=== PATIENT | male | born 1955 | race Caucasian/White ===

== ENCOUNTER 2024-06-26 14:25 | Outpatient (CLI) | payer MEDICARE, MEDICAID, SELFPAY ==
--- NOTE | 2024-06-26 14:30 | CT_ITS ---
FINAL REPORT TECHNIQUE: Thin section axial CT images of the facial bones and sinuses were obtained without contrast. Coronal reformatted images were also obtained.This study was performed with techniques to keep radiation doses as low as reasonably achievable, (ALARA). Individualized dose reduction techniques using automated exposure control or adjustment of mA and/or kV according to the patient''''s size were employed. CLINICAL HISTORY: recurrent sinusitis COMPARISON: None FINDINGS: There is lobular mucoperiosteal thickening in both maxillary sinuses, more evident on the right than on the left. There is soft tissue bridging the right ostiomeatal unit. The left ostiomeatal unit is patent. There is curvilinear air lateral to the left maxilla which appears to be intravascular and is well seen on images 68-71. The nasal septum is in the midline. No fracture or acute bony abnormality is identified. IMPRESSION: Bilateral maxillary sinusitis, [id number]. Soft tissue bridging the right ostiomeatal unit. Incidental air lateral to the left maxilla. Correlate with any recent IV access. Reviewed, Interpreted and Dictated by Vik Abraham MD Transcribed by Mary Boyle Authenticated and [facility]
== END 2024-06-26 23:59 | disposition home or self-care (01) ==
LOC: RAD 14:27
PROVIDERS: PCP Student in an Organized Health Care Education/Training Program; Visit Provider Student in an Organized Health Care Education/Training Program
DX: J32.9 Chronic sinusitis, unspecified (principal)
CPT/HCPCS: 70486